=== PATIENT | female | born 1990 | race Caucasian/White ===

== ENCOUNTER 2017-03-04 08:34 | Emergency (ER) | payer OTHER ==
[~2017-03-04] VITALS: Ht 152.4 cm; Wt 63.5 kg
[~2017-03-04 08:34] MED LIST: AMOXICILLIN500 MG PO; ATARAX25 MG PO; BACTRIM DS 8001 TA1 PO; CIPRO500 MG PO; CIPROFLOXACIN500 MG PO; MACROBID100 M1 PO; NAPROSYN500 MG PO; ORTHO TRI-CYCLE1 TAB PO; PHENERGAN12.5 M1 PO; PHENERGAN25 M1 PO; PREDNICOT20 MG PO; PRENATAL1 TA7 PO; PROVERA5 MG PO; PYRIDIUM200 MG PO; SERTRALINE25 MG PO; TORADOL10 MG PO; VICODIN 5/500 505 MG PO; XANAX0.5 MG PO; ZOLOFT50 MG PO; Zofran4 MG PO
[2017-03-04 08:45] VITALS: BP 142/86
[2017-03-04] MEDS ORDERED: Motrin,Rufen800 MG PO (10:08)
== END 2017-03-04 11:03 | disposition home or self-care (01) ==
LOC: ED 08:34
DX: S29.012A Strain of muscle and tendon of back wall of thorax, initial encounter (principal); F17.200 Nicotine dependence, unspecified, uncomplicated; Z79.899 Other long term (current) drug therapy; X58.XXXA Exposure to other specified factors, initial encounter; Y93.89 Activity, other specified; Y92.89 Other specified places as the place of occurrence of the external cause; Y99.9 Unspecified external cause status

== ENCOUNTER 2018-03-21 19:42 | Emergency (ER) | payer OTHER ==
[~2018-03-21] VITALS: Ht 152.4 cm; Wt 70.3 kg
[~2018-03-21 19:42] MED LIST changes: +Motrin,Rufen800 MG PO
[2018-03-21 19:43] VITALS: BP 140/80
[2018-03-21] MEDS ORDERED: CYCLOBENZAPRINE5 M3 PO (21:22)
[2018-03-21] MEDS ORDERED: Motrin,Rufen800 MG PO (21:22)
== END 2018-03-21 21:37 | disposition home or self-care (01) ==
LOC: ED 19:42
DX: M54.16 Radiculopathy, lumbar region (principal)

== ENCOUNTER → 2018-05-07 | Outpatient (CLI) | payer OTHER ==
[~2018-05-07] MED LIST changes: +CYCLOBENZAPRINE5 M3 PO
== END | disposition home or self-care (01) ==
LOC: CT 16:00
DX: N20.0 Calculus of kidney (principal); R31.9 Hematuria, unspecified

== ENCOUNTER → 2018-10-11 | Outpatient (CLI) | payer OTHER | END | disposition home or self-care (01) | LOC: RAD 16:24 | DX: M25.552 Pain in left hip (principal); M25.551 Pain in right hip ==

== ENCOUNTER → 2019-03-13 | Outpatient (CLI) | payer BC, OTHER ==
[2019-03-13 10:52] LABS: BASO # 0.1 10*3/uL (0.0-0.1); BASO % 1.1 % (0.0-1.0); EOS # 0.4 10*3/uL (0.0-0.4); EOS % 6.6 % (1.0-4.0); HEMATOCRIT 43.7 % (37.0-47.0); HEMOGLOBIN 14.4 g/dl (12.0-16.0); LYMPH # 1.7 10*3/uL (1.3-4.4); LYMPH % 31.8 % (27.0-41.0); MEAN CELL VOLUME 96.7 fl (81.0-99.0); MEAN CORPUSCULAR HGB 31.9 pg (27.0-31.0); MEAN PLATELET VOLUME 10.5 fl (9.6-12.3); MONO # 0.6 10*3/uL (0.1-1.0); MONO % 11.4 % (3.0-9.0); NEUT # 2.6 10*3/uL (2.3-7.9); NEUT % 48.9 % (47.0-73.0); PLATELET COUNT AUTOMATED 223 10*3/uL (130-400); RED BLOOD COUNT 4.52 10*6/uL (4.10-5.10); RED CELL DISTRI WIDTH 12.5 % (0-14.5); WHITE BLOOD COUNT 5.3 10*3/uL (4.8-10.8)
[2019-03-13 11:03] LABS: URINE AMPHETAMINES < 1000 (1000ng/ml); URINE BARBITURATES < 200 (200ng/ml); URINE BENZODIAZEPINES < 200 (200ng/ml); URINE CANNABINOIDS (THC) < 50 (50ng/ml); URINE COCAINE < 300 (300ng/ml); URINE METHADONE < 300 (300ng/ml); URINE OPIATES < 300 (300ng/ml); URINE PHENCYCLIDINE < 25 (25ng/ml)
[2019-03-13 11:30] LABS: ALBUMIN 3.8 gm/dl (3.1-4.5); ALKALINE PHOSPHATASE 78 U/L (45-117); BILIRUBIN, DIRECT 0.1 mg/dL (0.0-0.2); BUN 11 mg/dl (7-24); CHLORIDE 106 mmol/L (98-107); CHOLESTEROL 167 mg/dL (<200); CREATININE 0.84 mg/dL (0.55-1.02); FREE T4 0.86 ng/dl (0.76-1.46); HDL CHOLESTEROL 42 mg/dl (40-60); LDL CHOLESTEROL 107 mg/dL (9-159); POTASSIUM 4.1 mmol/L (3.5-5.1); SGOT/AST 11 IU/L (3-35); SGPT/ALT 19 U/L (12-78); SODIUM 140 mmol/L (136-145); T3 UPTAKE 34 % (31-39); TOTAL PROTEIN 7.4 gm/dL (6.4-8.2); TRIGLYCERIDES 90 mg/dl (<150); VLDL CHOLESTEROL 18 mg/dL (6-40)
[2019-03-13 11:34] LABS: THYROID STIM HORMONE (HS) 0.885 uIU/ml (0.358-4.75)
== END | disposition home or self-care (01) ==
LOC: LAB 10:32
PROVIDERS: Nurse Practitioner Family
DX: F41.9 Anxiety disorder, unspecified (principal); R63.5 Abnormal weight gain; Z79.899 Other long term (current) drug therapy

== ENCOUNTER → 2020-03-20 | Outpatient (CLI) | payer OTHER | END | disposition home or self-care (01) | LOC: RAD 18:04 | DX: J02.9 Acute pharyngitis, unspecified (principal); R06.02 Shortness of breath; R05 Cough ==

== ENCOUNTER → 2020-03-24 | Outpatient (CLI) | payer OTHER | END | disposition home or self-care (01) | LOC: COVID19 08:07 | DX: J02.9 Acute pharyngitis, unspecified (principal); R06.02 Shortness of breath; R05 Cough; Z20.828 Contact with and (suspected) exposure to other viral communicable diseases ==

== ENCOUNTER 2020-05-05 14:38 | Inpatient (IN) | payer OTHER ==
[~2020-05-05] VITALS: Ht 152.4 cm; Wt 59.7 kg
[2020-05-05 14:49] VITALS: BP 113/76
[2020-05-05 15:44] LABS: BASO % 0.3 % (0.0-1.0); EOS % 0.1 % (1.0-4.0); HEMATOCRIT 41.7 % (37.0-47.0); LYMPH % 6.4 % (27.0-41.0); MEAN CELL VOLUME 97.2 fl (81.0-99.0); MEAN CORPUSCULAR HGB 31.5 pg (27.0-31.0); MEAN CORPUSCULAR HGB CONC 32.4 g/dl (33.0-37.0); MEAN PLATELET VOLUME 10.8 fl (9.6-12.3); MONO # 0.6 10*3/uL (0.1-1.0); MONO % 3.5 % (3.0-9.0); NEUT # 14.2 10*3/uL (2.3-7.9); NEUT % 89.3 % (47.0-73.0); PLATELET COUNT AUTOMATED 203 10*3/uL (130-400); RED BLOOD COUNT 4.29 10*6/uL (4.10-5.10); WHITE BLOOD COUNT 15.9 10*3/uL (4.8-10.8)
[2020-05-05 15:58] LABS: ALBUMIN 3.1 gm/dl (3.1-4.5); ALKALINE PHOSPHATASE 91 U/L (45-117); BUN 10 mg/dl (7-24); CHLORIDE 101 mmol/L (98-107); CREATININE 1.24 mg/dL (0.55-1.02); LIPASE 38 U/L (73-393); POTASSIUM 3.1 mmol/L (3.5-5.1); SGOT/AST 7 IU/L (3-35); SGPT/ALT 12 U/L (12-78); SODIUM 133 mmol/L (136-145); TOTAL PROTEIN 7.5 gm/dL (6.4-8.2)
[2020-05-05 16:27] LABS: BILIRUBIN NEGATIVE (NEGATIVE); BLOOD 3+ (NEGATIVE); CLARITY CLOUDY (CLEAR); COLOR YELLOW (YELLOW); GLUCOSE NEGATIVE (NEGATIVE); KETONE 2+ (NEGATIVE); SPECIFIC GRAVITY 1.015 (1.005-1.030)
[2020-05-05 16:28] LABS: LEUKO ESTERASE 3+ (NEGATIVE); NITRITE POSITIVE (NEGATIVE)
[2020-05-05 16:34] LABS: WBC TNTC wbc/hpf (0-5)
[2020-05-05 16:45] VITALS: BP 119/75
[2020-05-05 17:13] VITALS: BP 123/72
[2020-05-05 19:00] VITALS: BP 142/71
[2020-05-05] MEDS ORDERED: VYVANSE60 MG PO (19:31)
[2020-05-06] VITALS: BP 101/63
[2020-05-06 06:50] LABS: BASO % 0.2 % (0.0-1.0); EOS # 0.1 10*3/uL (0.0-0.4); EOS % 0.9 % (1.0-4.0); HEMATOCRIT 38.5 % (37.0-47.0); LYMPH # 1.1 10*3/uL (1.3-4.4); LYMPH % 6.7 % (27.0-41.0); MEAN CELL VOLUME 95.5 fl (81.0-99.0); MEAN CORPUSCULAR HGB 30.8 pg (27.0-31.0); MEAN CORPUSCULAR HGB CONC 32.2 g/dl (33.0-37.0); MEAN PLATELET VOLUME 10.7 fl (9.6-12.3); MONO % 6.2 % (3.0-9.0); NEUT # 13.9 10*3/uL (2.3-7.9); NEUT % 85.5 % (47.0-73.0); PLATELET COUNT AUTOMATED 184 10*3/uL (130-400); RED BLOOD COUNT 4.03 10*6/uL (4.10-5.10); RED CELL DISTRI WIDTH 12.5 % (0-14.5); WHITE BLOOD COUNT 16.2 10*3/uL (4.8-10.8)
[2020-05-06 07:26] LABS: BUN 8 mg/dl (7-24); CHLORIDE 106 mmol/L (98-107); CREATININE 0.95 mg/dL (0.55-1.02)
[2020-05-06 07:34] LABS: SODIUM 138 mmol/L (136-145)
[2020-05-06 07:41] LABS: POTASSIUM 4.4 mmol/L (3.5-5.1)
[2020-05-06 08:00] VITALS: BP 110/72
[2020-05-06 12:00] VITALS: BP 111/63
[2020-05-06 16:00] VITALS: BP 119/79
[2020-05-06 20:00] VITALS: BP 125/75; BP 128/66
[2020-05-07] VITALS: BP 117/74
[2020-05-07 07:11] LABS: BASO % 0.3 % (0.0-1.0); EOS # 0.2 10*3/uL (0.0-0.4); EOS % 1.9 % (1.0-4.0); LYMPH # 1.1 10*3/uL (1.3-4.4); LYMPH % 10.7 % (27.0-41.0); MEAN CELL VOLUME 95.5 fl (81.0-99.0); MEAN CORPUSCULAR HGB 30.7 pg (27.0-31.0); MEAN CORPUSCULAR HGB CONC 32.1 g/dl (33.0-37.0); MEAN PLATELET VOLUME 10.7 fl (9.6-12.3); MONO # 1.1 10*3/uL (0.1-1.0); MONO % 10.7 % (3.0-9.0); NEUT # 7.6 10*3/uL (2.3-7.9); PLATELET COUNT AUTOMATED 201 10*3/uL (130-400); RED BLOOD COUNT 3.98 10*6/uL (4.10-5.10); RED CELL DISTRI WIDTH 12.6 % (0-14.5)
[2020-05-07 07:24] LABS: CHLORIDE 108 mmol/L (98-107); POTASSIUM 3.6 mmol/L (3.5-5.1); SODIUM 138 mmol/L (136-145)
[2020-05-07 07:32] LABS: BUN 5 mg/dl (7-24); CREATININE 0.92 mg/dL (0.55-1.02)
[2020-05-07 08:00] VITALS: BP 108/66
[2020-05-07 12:00] VITALS: BP 102/60
[2020-05-07 16:00] VITALS: BP 117/69
[2020-05-07 20:00] VITALS: BP 118/77
[2020-05-08] VITALS: BP 120/76
[2020-05-08] MEDS ORDERED: CIPRO500 MG PO (06:37)
[2020-05-08 08:00] VITALS: BP 129/86
== END 2020-05-08 09:53 | disposition home or self-care (01) | DRG 463 ==
LOC: ED 14:38 → EDHOLD 17:19 → 4E 17:19
PROVIDERS: Physician Assistant; ADMIT Internal Medicine
DX: N10 Acute pyelonephritis (principal); N20.0 Calculus of kidney; N17.0 Acute kidney failure with tubular necrosis; F90.9 Attention-deficit hyperactivity disorder, unspecified type; R00.0 Tachycardia, unspecified; B96.20 Unspecified Escherichia coli [E. coli] as the cause of diseases classified elsewhere; E87.6 Hypokalemia; E87.2 Acidosis; N94.89 Other specified conditions associated with female genital organs and menstrual cycle; Z87.440 Personal history of urinary (tract) infections; Z97.5 Presence of (intrauterine) contraceptive device

== ENCOUNTER → 2020-07-03 | Outpatient (CLI) | payer OTHER ==
[~2020-07-03] MED LIST changes: +VYVANSE60 MG PO
== END | disposition home or self-care (01) ==
LOC: CARD 07-02 10:30
PROVIDERS: ATTEND Family Medicine
DX: R00.2 Palpitations (principal); R42 Dizziness and giddiness

== ENCOUNTER → 2020-11-05 | Outpatient (CLI) | payer OTHER | END | disposition home or self-care (01) | LOC: US 07:30 | PROVIDERS: ATTEND Nurse Practitioner Family | DX: G62.9 Polyneuropathy, unspecified (principal); R09.89 Other specified symptoms and signs involving the circulatory and respiratory systems; F17.210 Nicotine dependence, cigarettes, uncomplicated; E11.9 Type 2 diabetes mellitus without complications ==

== ENCOUNTER 2021-11-07 15:51 | Emergency (ER) | payer OTHER ==
[~2021-11-07] VITALS: Ht 152.4 cm; Wt 65.3 kg
[2021-11-07 16:11] VITALS: BP 140/96
[2021-11-07 16:40] LABS: BASO # 0.1 10*3/uL (0.0-0.1); EOS # 0.5 10*3/uL (0.0-0.4); EOS % 5.2 % (1.0-4.0); HEMATOCRIT 42.3 % (37.0-47.0); LYMPH # 2.1 10*3/uL (1.3-4.4); LYMPH % 22.7 % (27.0-41.0); MEAN CELL VOLUME 93.6 fl (81.0-99.0); MEAN CORPUSCULAR HGB 31.6 pg (27.0-31.0); MEAN CORPUSCULAR HGB CONC 33.8 g/dl (33.0-37.0); MEAN PLATELET VOLUME 10.5 fl (9.6-12.3); MONO # 0.7 10*3/uL (0.1-1.0); MONO % 7.6 % (3.0-9.0); NEUT # 5.8 10*3/uL (2.3-7.9); NEUT % 63.2 % (47.0-73.0); PLATELET COUNT AUTOMATED 250 10*3/uL (130-400); RED BLOOD COUNT 4.52 10*6/uL (4.10-5.10); RED CELL DISTRI WIDTH 12.3 % (0-14.5); WHITE BLOOD COUNT 9.1 10*3/uL (4.8-10.8)
[2021-11-07 16:55] LABS: ALBUMIN 3.6 gm/dl (3.1-4.5); ALKALINE PHOSPHATASE 87 U/L (45-117); BUN 10 mg/dl (7-24); CHLORIDE 107 mmol/L (98-107); CREATININE 0.62 mg/dL (0.55-1.02); SGOT/AST 12 IU/L (3-35); SGPT/ALT 20 U/L (12-78); SODIUM 138 mmol/L (136-145); TOTAL PROTEIN 7.3 gm/dL (6.4-8.2)
[2021-11-07 16:58] LABS: B-hCG (QUALITATIVE) NEGATIVE (NEGATIVE)
[2021-11-07 17:31] LABS: BILIRUBIN Negative (Negative); BLOOD 1+ (Negative); CLARITY Cloudy (Clear); COLOR Yellow (Yellow); GLUCOSE Negative (Negative); KETONE Negative (Negative); LEUKO ESTERASE Trace (Negative); NITRITE Negative (Negative); UROBILINOGEN 0.2 E.U./dl (0.0-1.0)
[2021-11-07 17:40] LABS: BACTERIA 3+; RBC 16-20 rbc/hpf (0-2)
[2021-11-07] MEDS ORDERED: CEFUROXIME AXE500 MG PO (19:51)
== END 2021-11-07 21:18 | disposition home or self-care (01) ==
LOC: ED 15:51
PROVIDERS: Emergency Medicine; Physician Assistant
DX: N39.0 Urinary tract infection, site not specified (principal); Z79.899 Other long term (current) drug therapy

== ENCOUNTER 2023-06-05 14:55 | Emergency (ER) | payer BC, OTHER ==
[~2023-06-05] VITALS: Ht 152.4 cm; Wt 68.0 kg
[~2023-06-05 14:55] MED LIST changes: +CEFUROXIME AXE500 MG PO
[2023-06-05 15:09] VITALS: BP 141/90
[2023-06-05] MEDS ORDERED: PENICILLIN-VK500 MG PO (15:15)
== END 2023-06-05 15:29 | disposition home or self-care (01) ==
LOC: ED 14:55
DX: K08.89 Other specified disorders of teeth and supporting structures (principal); Z79.2 Long term (current) use of antibiotics